=== PATIENT | male | born 1965 | race Caucasian/White ===

== ENCOUNTER 2016-06-18 05:39 | Day surgery (SDC) | payer OTHER ==
[~2016-06-18] VITALS: Ht 170.2 cm; Wt 67.3 kg
[2016-06-18 06:54] VITALS: Ht 170.2 cm; Wt 67.3 kg
[2016-06-18] MEDS ORDERED: TRAM50TA2 PO (07:00)
[2016-06-18 07:05] VITALS: BP 121/74; PULSE 51; RESP 16
[2016-06-18] MEDS ORDERED: MIDAZOLAM 1 MG/ML 2 ML INJ ONE ×2 (07:49→07:50)
[2016-06-18] MEDS ORDERED: FENTAnyl 50 MCG/ML VIAL ONE (07:50)
[2016-06-18 08:05] VITALS: BP 112/77; PULSE 53
--- NOTE | 2016-06-19 06:25 | GILP ---
DATE OF PROCEDURE: NAME OF PROCEDURES: Esophagogastroduodenoscopy and biopsy. SURGEON: Ingrid Patel MD PREOPERATIVE DIAGNOSIS: Vomiting. POSTOPERATIVE DIAGNOSES: 1. Hiatal hernia. 2. Gastroesophageal reflux disease. 3. Bile reflux gastritis. 4. Gastric mucosal biopsies were taken for Helicobacter pylori test. INDICATION FOR THE PROCEDURE: Mr. Jose Juan Wang is a 51-year-old male patient who was complainin g of vomiting. The patient was scheduled for endoscopic examination for further evaluation. The procedure and possible complications are well explained to the patient. The patient understood and consented to the procedure. DESCRIPTION OF PROCEDURE: Under the influence of fentanyl and Versed, the gastroscope was carefully introduced into the esophagus and under direct vision, it was advanced to the stomach and through t he pylorus into the duodenal bulb and descending duodenum. FINDINGS: ESOPHAGUS: The patient had hiatal hernia and gastroesophageal reflux disease. STOMACH: He had gastritis. He had bile reflux. Gastric mucosal biopsies were taken for H. pylori test. DUODENUM: Normal. The patient tolerated the procedure very well and there was no complication from the procedure. At the end of the procedure, he was awake with stable vital signs and he was discharged home to the car e of his family. IMPRESSION: Please see postoperative diagnoses. PLAN: 1. Carafate 1 g p.o. t.i.d. a.c. 2. Await H. pylori test report. Dictated By: INGRID HADDAD/YANA Conf#: [id number] DID#: [id number]
== END 2016-06-18 10:07 | disposition home or self-care (01) ==
LOC: GIL 05:39
PROVIDERS: ATTEND Internal Medicine Gastroenterology
DX: K44.9 Diaphragmatic hernia without obstruction or gangrene (principal); K21.9 Gastro-esophageal reflux disease without esophagitis; K29.60 Other gastritis without bleeding
CPT/HCPCS: 43239; J2250; J3010; Z7610; 87081

== ENCOUNTER 2016-09-01 09:07 | Day surgery (SDC) | payer OTHER ==
[~2016-09-01] VITALS: Ht 170.2 cm; Wt 66.1 kg
[~2016-09-01 09:07] MED LIST: TRAM50TA2 PO
[2016-09-01 09:47] VITALS: Ht 170.2 cm; Wt 66.1 kg
[2016-09-01 09:56] VITALS: BP 119/78; PULSE 56; RESP 18
[2016-09-01] MEDS ORDERED: MIDAZOLAM 1 MG/ML 2 ML INJ ONE ×2 (11:06)
[2016-09-01] MEDS ORDERED: FENTAnyl 50 MCG/ML VIAL ONE (11:06)
[2016-09-01 11:24] VITALS: BP 114/83; PULSE 54; RESP 24
--- NOTE | 2016-09-01 11:41 | GILP ---
DATE OF PROCEDURE: 09/01/2016 NAME OF PROCEDURE: Colonoscopy. SURGEON: Ingrid Queen MD PREOPERATIVE DIAGNOSIS: Screening colonoscopy. POSTOPERATIVE DIAGNOSES: 1. Colonoscopy all the way to the cecum. 2. Internal hemorrhoids. 3. No colon neoplasm was identified. INDICATION FOR THE PROCEDURE: Mr. Jose Juan Wang is a 51-year-old male patient who was scheduled for screening colonoscopy. The procedure and possible complications are well explained to the patient, he understood and consen dorota to the procedure. DESCRIPTION OF PROCEDURE: Under the influence of fentanyl and Versed, the colonoscope was carefully introduced in the rectum and under direct vision, it was advanced all the way to the cecum. FINDINGS: The patient had internal hemorrhoids. No colon neoplasm was identified. He tolerated the procedure very well and there was no complication from the procedure. At the end o f the procedure, he was awake with stable vital signs and he was discharged home to the care of his family. IMPRESSION: 1. Colonoscopy all the way to the cecum. 2. Internal hemorrhoids. 3. No colon neoplasm was identified. PLAN: Next screening colonoscopy in 10 years. Dictated By: INGRID QUEEN MD GD/NTS Conf#: [id number] DID#: [id number] CC: INGRID QUEEN MD;*EndCC*
== END 2016-09-02 08:12 | disposition home or self-care (01) ==
LOC: GIL 09:07
PROVIDERS: ATTEND Internal Medicine Gastroenterology
DX: Z12.11 Encounter for screening for malignant neoplasm of colon (principal); K64.8 Other hemorrhoids
CPT/HCPCS: 45378; J2250; J3010; Z7610